=== PATIENT | male | born 1940 | race Caucasian/White ===

== ENCOUNTER 2018-12-17 03:37 | Emergency (ER) | payer MEDICARE ==
[2018-12-17] MEDS ORDERED: MIDAZOLAM HCL 50 MG/100 ML RTUINJ ONE (03:52)
[2018-12-17] MEDS ORDERED: NOREPINEPHRINE BITARTRATE INJ/PF 4 MG/4 ML SDV IV ONE ×2 (03:56→08:34)
[2018-12-17] MEDS ORDERED: MIDAZOLAM 2 MG/2 ML INJ ONE (04:03)
[2018-12-17] MEDS ORDERED: TRANEXAMIC ACID INJ/PF 1,000 MG/10 ML SDV IV ONE ×2 (04:15→08:12)
[2018-12-17 04:25] LABS: ABSOLUTE EOSINOPHILS # (AUTO) 0.1 10^3/uL (0.0-0.6); ABSOLUTE LYMPHOCYTES (AUTO) 5.2 10^3/uL (0.5-4.7); ABSOLUTE MONOCYTES (AUTO) 0.5 10^3/uL (0.1-1.4); ABSOLUTE NEUT (AUTO) 3.9 10^3/uL (1.7-8.2); BASOPHILS % (AUTO) 0.4 % (0-2); EOSINOPHILS % (AUTO) 1.2 % (0-6); HEMATOCRIT 23.8 % (37.9-51.0); MEAN CORPUSCULAR HGB CONC 31.8 g/dL (32.0-36.0); MEAN CORPUSCULAR VOLUME 94 fl (80-97); MONOCYTES % (AUTO) 5.4 % (3-13); PLATELET COUNT 164 10^3/uL (150-450); RED BLOOD COUNT 2.52 10^6/uL (4.35-5.55); RED CELL DISTRIBUTION WIDTH 17.8 % (11.5-14.0); TOTAL CELLS COUNTED % (AUTO) 100 %; WHITE BLOOD COUNT 9.7 10^3/uL (4.0-10.5)
[2018-12-17 04:27] LABS: FIBRINOGEN 295 mg/dL (209-497); INTERNATIONAL RATION (INR) 1.64; PROTHROMBIN TIME 19.6 SEC (11.4-15.4)
[2018-12-17 04:28] LABS: HEMOGLOBIN 7.6 g/dL (13.5-17.0); PARTIAL THROMBOPLASTIN TIME 38.3 SEC (23.5-35.8)
[2018-12-17 04:30] LABS: D-DIMER 1.55 ug/mL (0.00-0.50)
[2018-12-17] MEDS ORDERED: VASOPRESSIN INJ 20 UNIT/1 ML VIAL ONE ×6 (04:46→09:01)
[2018-12-17 04:52] LABS: ALANINE AMINOTRANSFERASE 26 U/L (21-72); ALBUMIN 2.3 g/dL (3.5-5.0); ALKALINE PHOSPHATASE 62 U/L (38-126); ANION GAP 17 (5-19); ASPARTATE AMINO TRANSFERASE 58 U/L (17-59); BILIRUBIN,DIRECT 0.2 mg/dL (0.0-0.4); BILIRUBIN,TOTAL 0.3 mg/dL (0.2-1.3); BLOOD UREA NITROGEN 16 mg/dL (7-20); CALCIUM 8.3 mg/dL (8.4-10.2); CARBON DIOXIDE 12 mmol/L (22-30); CHLORIDE 111 mmol/L (98-107); GLUCOSE 208 mg/dL (75-110); POTASSIUM 4.2 mmol/L (3.6-5.0); SODIUM 140.4 mmol/L (137-145)
[2018-12-17] MEDS: DEXTROSE 5%-WATER 250 ML with VASOPRESSIN 100 UNIT IV PRN ×8 (04:52→09:37)
--- NOTE | 2018-12-17 04:57 | RADIOLOGY REPORT (SQ) ---
EXAM DESCRIPTION: XR CHEST 1 VIEW COMPLETED DATE/TME: 12/17/2018 04:16 CLINICAL HISTORY: 78 years, Male, intubated COMPARISON: None. NUMBER OF VIEWS: One TECHNIQUE: AP view of the chest LIMITATIONS: None. FINDINGS: As a left basilar airspace opacity with small left pleural effusion. The heart is at the upper limit of normal in size. There is no pneumothorax. The endotracheal tube terminates 3.3 cm above the chaya. The right chest wall port terminates within the SVC. IMPRESSION: Left basilar airspace opacity with small left pleural effusion. Satisfactory position of the endotracheal tube. copyright 2010 [employer]- All Rights Reserved
--- NOTE | 2018-12-17 05:48 | ER Document Report ---
ED General - General Chief Complaint: GI Bleeding Stated Complaint: VOMITING Notes: Patient is a 78-year-old male with a history of esophageal cancer and mass who presents with heavy bleeding coming from the mouth and esophagus. Patient has had this happen once before and had to have emergent surgery. He is followed at [facility]. He said his previous surgery at [facility]. He just recently finished radiation and chemotherapy treatments. He is also had some treatment at [facility] but family says everything is currently being followed at [facility]. Daughter says his symptoms started suddenly tonight. Says he does not take any blood thinning medications. Medics also mentioned that they did do an EKG which shows evidence of ST elevation NM. Does have previous history of coronary disease. It is difficult to get any history from the patient as he is very diaphoretic and weak and cannot really talk and is very ill. - Related Data Allergies/Adverse Reactions: No Known Allergies Allergy (Unverified 12/17/18 07:43) Past Medical History - Social History Smoking Status: Unknown if Ever Smoked Frequency of alcohol use: None Drug Abuse: None Family History: Reviewed & Not Pertinent Review of Systems - Review of Systems Notes: My Normal Review Basic REVIEW OF SYSTEMS: CONSTITUTIONAL : Denies fever, chills, or sweats. Denies recent illness. RESPIRATORY: Denies cough, cold, or chest congestion. Denies shortness of breath, difficulty breathing, or wheezing. GASTROINTESTINAL: Denies abdominal pain. Active vomiting MUSCULOSKELETAL: Denies neck or back pain or joint pain or swelling. SKIN: Denies rash or skin lesions. HEMATOLOGIC : Denies easy bruising or bleeding. NEUROLOGICAL: Denies altered mental status or loss of consciousness. Denies headache. Denies weakness or paralysis or loss of use of either side. Denies problems with gait or speech. Denies sensory or motor loss. ALL OTHER SYSTEMS REVIEWED AND NEGATIVE. Physical Exam - Vital signs Vitals: Pulse Ox 96 12/17/18 04:10 - Notes Notes: General Appearance: Pale, diaphoretic, unwell appearing. Hypotensive. Actively vomiting blood. Vitals: reviewed, See vital signs table. Head: no swelling or tenderness to the head Eyes: PERRL, EOMI, Conjuctiva clear Mouth: Red blood coming from mouth. Throat: No tonsillar inflammation, No airway obstruction, No lymphadenopathy Neck: Supple, no neck tenderness, No thyromegaly Lungs: No wheezing, No rales, No rhonci, No accessory muscle use, good air exchange bilaterally. Heart: Normal rate, Regular rythm, No murmur, no rub Abdomen: Normal BS, soft, No rigidity, No abdominal tenderness Extremities: good pulses in all extremities, no swelling or tenderness in the extremities, no edema. Skin: warm, dry, appropriate color, no rash Neuro: Patient is awake but somnolent appearing. Difficult to get full neuro exam as patient cannot follow commands at this time. He does have some purposeful movement in all extremities. Course - Re-evaluation Re-evalutation: 12/17/18 05:47 I did speak with MICU fellow at [facility], Dr. Marcell Vargas. This is her first, but now the room as I have been in the room ever since the patient arrived as he has been continually bleeding of had to be doing transfusions as well as central lines as well as attempted art line placement as well as intubation. I did speak with MICU attending at [facility]. He requests I get a repeat CBC and a lactic acid and ABG. He said he wants to see his stability the patient and that he would except for [facility] transport. 12/17/18 06:50 I spoke again with Dr. Vargas. Agrees to accept the patient. He says I will send out to [facility] transport to evaluate the patient for transport. 12/17/18 07:08 Continue to titrated on the patient's Levophed. He was as high as 21 point. His Levophed is now down to 7. His blood pressure is stable with this. We will continue to slowly titrate down the Levophed. His repeat labs are improving. We will continue to monitor the patient until transfer. 12/17/18 08:09 Patient's did have another episode of large amount of masses. He brought approximately 200 mL's of blood with clots. I therefore gave him another unit of blood to replace what is obviously him still bleeding. I also ordered another unit of FFP. Patient therefore will have a total of 7 units of packed red blood cells and 3 units of FFP. 12/17/18 08:18 In regards to the patient's ST elevation NM on EKG, this is likely to the fact the patient is hypotensive upon arrival from all the bleeding. He is different candidate for thrombolytics. His most emergent need is to control the bleeding and therefore went forward with TXA as well as giving him multiple units of blood. His without supportive treatment of the bleeding patient would have and therefore think the possible NM is secondary at this time. Troponin surprisingly is in the indeterminate range and not significantly elevated. I did inform veterinary anatomist when I talked him of the EKG findings. Multiple attempts at the arterial line were performed. It initially by the left femoral artery however the femoral artery is very calcified and every time the needle would start an ultrasound of the push to the side and was unable to punctual artery. There tried the left radial artery but was unable to get a flash. I then did ultrasound-guided arterial line and the brachial artery of the right arm. I was able to get a flash that the catheter would only partially thread. It did give us a blood pressure reading for approximately 20 minutes but then the line failed and I had to remove the line. 12/17/18 08:23 - Vital Signs Vital signs: Temp Pulse Resp BP Pulse Ox 24 H 142/86 H 100 12/17/18 07:49 12/17/18 07:49 12/17/18 07:49 - Laboratory Result Diagrams: 12/17/18 05:52 12/17/18 05:52 Laboratory results interpreted by me: 12/17/18 12/17/18 12/17/18 03:48 03:48 03:48 WBC RBC 2.52 L Hgb 7.6 L Hct 23.8 L MCHC 31.8 L RDW 17.8 H Seg Neutrophils % 40.0 L Lymphocytes % 53.0 H Absolute Neutrophils Absolute Lymphocytes 5.2 H PT 19.6 H APTT 38.3 H D-Dimer 1.55 H Carbonic Acid ABG pH ABG pCO2 ABG pO2 ABG HCO3 ABG Total CO2 ABG O2 Saturation VBG pH VBG HCO3 Sodium Potassium Chloride 111 H Carbon Dioxide 12 L Glucose 208 H Lactic Acid Calcium 8.3 L Total Protein 5.0 L Albumin 2.3 L Urine Protein Urine Urobilinogen Urine Ascorbic Acid Crossmatch 12/17/18 12/17/18 12/17/18 03:54 05:52 05:52 WBC 15.4 H RBC 3.60 L Hgb 10.9 L D Hct 32.6 L MCHC RDW 15.8 H Seg Neutrophils % 78.2 H Lymphocytes % Absolute Neutrophils 12.1 H Absolute Lymphocytes PT APTT D-Dimer Carbonic Acid ABG pH ABG pCO2 ABG pO2 ABG HCO3 ABG Total CO2 ABG O2 Saturation VBG pH 7.20 L VBG HCO3 17.1 L Sodium Potassium Chloride Carbon Dioxide Glucose Lactic Acid Calcium Total Protein Albumin Urine Protein Urine Urobilinogen Urine Ascorbic Acid Crossmatch See Detail 12/17/18 12/17/18 12/17/18 05:52 05:52 06:27 WBC RBC Hgb Hct MCHC RDW Seg Neutrophils % Lymphocytes % Absolute Neutrophils Absolute Lymphocytes PT APTT D-Dimer Carbonic Acid 1.02 L ABG pH 7.28 L ABG pCO2 33.9 L ABG pO2 201.0 H ABG HCO3 15.7 L ABG Total CO2 16.8 L ABG O2 Saturation 99.3 H VBG pH VBG HCO3 Sodium 135.1 L Potassium 5.8 H D Chloride Carbon Dioxide 16 L Glucose 301 H Lactic Acid Calcium 7.2 L Total Protein Albumin Urine Protein 30 H Urine Urobilinogen 2.0 H Urine Ascorbic Acid 40 H Crossmatch 12/17/18 06:39 WBC RBC Hgb Hct MCHC RDW Seg Neutrophils % Lymphocytes % Absolute Neutrophils Absolute Lymphocytes PT APTT D-Dimer Carbonic Acid ABG pH ABG pCO2 ABG pO2 ABG HCO3 ABG Total CO2 ABG O2 Saturation VBG pH VBG HCO3 Sodium Potassium Chloride Carbon Dioxide Glucose Lactic Acid 4.8 H Calcium Total Protein Albumin Urine Protein Urine Urobilinogen Urine Ascorbic Acid Crossmatch - EKG Interpretation by Me Additional EKG results interpreted by me: 12/17/18 08:20 EKG is reviewed and interpreted by me. EKG shows sinus tachycardia with rate of 101 bpm. Patient has what appears to be a ST elevation NM with elevation in inferior leads and reciprocal depressions in the anterior leads. KS interval, QRS duration are within normal range. QTc interval slightly prolonged. Procedures - Central Line Right Femoral Central line pre-insertion: Chloraprep applied Central line lumen type: Triple Ultrasound guided: Yes Central line post-insertion: Blood return from lumens, Biopatch applied, Sutured, Sterile dressing applied Number of attempts: 1 Complications: No - Intubation Orotracheal Airway evaluation: Normal anatomy Mallampati Classification: Class 1 Intubation method: Orotracheal Blade type: Bernadette Blade size: 4 Equipment used: Glidescope ETT size: 7.5 Breath Sounds after Intubation: Equal End tidal CO2 confirmed: Yes Critical Care Note - Critical Care Note Total time excluding time spent on procedures (mins): 150 Comments: Critical care time for this patient not including time spent in procedures proximally 150 minutes due to management of hemorrhagic shock, management of ventilator, management sedation, management of severe upper GI bleeding. Discharge - Discharge Clinical Impression: Hemorrhagic shock GI bleed Qualifiers: GI bleed type/associated pathology: unspecified gastrointestinal hemorrhage type Qualified Code(s): K92.2 - Gastrointestinal hemorrhage, unspecified STEMI (ST elevation myocardial infarction) Qualifiers: Involved coronary artery: unspecified coronary artery Qualified Code(s): I21.3 - ST elevation (STEMI) myocardial infarction of unspecified site Condition: Serious Disposition: [facility]
[2018-12-17 06:17] LABS: VENOUS BLOOD BASE EXCESS -10.5 mmol/L; VENOUS BLOOD HCO3 17.1 mmol/L (20-32); VENOUS BLOOD PCO2 44.5 mmHg (35-63); VENOUS BLOOD PH 7.2 (7.30-7.42)
[2018-12-17 06:20] LABS: ABSOLUTE BASOPHILS # (AUTO) 0.1 10^3/uL (0.0-0.2); ABSOLUTE EOSINOPHILS # (AUTO) 0.1 10^3/uL (0.0-0.6); ABSOLUTE LYMPHOCYTES (AUTO) 2.5 10^3/uL (0.5-4.7); ABSOLUTE MONOCYTES (AUTO) 0.7 10^3/uL (0.1-1.4); ABSOLUTE NEUT (AUTO) 12.1 10^3/uL (1.7-8.2); BASOPHILS % (AUTO) 0.3 % (0-2); EOSINOPHILS % (AUTO) 0.4 % (0-6); HEMATOCRIT 32.6 % (37.9-51.0); LYMPHOCYTES % (AUTO) 16.3 % (13-45); MEAN CORPUSCULAR HEMOGLOBIN 30.2 pg (27.0-33.4); MEAN CORPUSCULAR HGB CONC 33.4 g/dL (32.0-36.0); MEAN CORPUSCULAR VOLUME 91 fl (80-97); MONOCYTES % (AUTO) 4.8 % (3-13); PLATELET COUNT 214 10^3/uL (150-450); RED CELL DISTRIBUTION WIDTH 15.8 % (11.5-14.0); SEGMENTED NEUTROPHILS % (AUTO) 78.2 % (42-78); TOTAL CELLS COUNTED % (AUTO) 100 %; WHITE BLOOD COUNT 15.4 10^3/uL (4.0-10.5)
[2018-12-17 06:21] LABS: HEMOGLOBIN 10.9 g/dL (13.5-17.0); URINE SPECIFIC GRAVITY 1.021
[2018-12-17 06:22] LABS: APPEARANCE,URINE CLEAR; BILIRUBIN,URINE NEGATIVE (NEGATIVE); COLOR,URINE YELLOW; GLUCOSE, URINE NEGATIVE (NEGATIVE); KETONES,URINE NEGATIVE (NEGATIVE); LEUKOCYTE ESTERASE,URINE NEGATIVE (NEGATIVE); NITRITE,URINE NEGATIVE (NEGATIVE); PROTEIN,URINE 30 mg/dL (NEGATIVE)
[2018-12-17 06:35] LABS: ANION GAP 13 (5-19); BLOOD UREA NITROGEN 17 mg/dL (7-20); CALCIUM 7.2 mg/dL (8.4-10.2); CARBON DIOXIDE 16 mmol/L (22-30); CHLORIDE 106 mmol/L (98-107); GLUCOSE 301 mg/dL (75-110); SODIUM 135.1 mmol/L (137-145)
[2018-12-17 06:39] LABS: ARTERIAL BLOOD H2CO3 1.02 mmol/L (1.05-1.35); ARTERIAL BLOOD HCO3 15.7 mmol/L (20-24); ARTERIAL BLOOD O2 SATURATION 99.3 % (94-98); ARTERIAL BLOOD PCO2 33.9 mmHg (35-45); ARTERIAL BLOOD PH 7.28 (7.35-7.45); ARTERIAL BLOOD TOTAL CO2 16.8 mmol/L (23-27)
[2018-12-17 06:41] LABS: ARTERIAL BLOOD FIO2 80%
[2018-12-17 06:46] LABS: POTASSIUM 5.8 mmol/L (3.6-5.0)
[2018-12-17] MEDS ORDERED: NORMAL SALINE 250 ML IV PRN ×2 (07:54→08:48)
[2018-12-17] MEDS ORDERED: MIDAZOLAM HCL 50 MG/100 ML RTUINJ IV PRN (08:11)
[2018-12-17] MEDS ORDERED: ETOMIDATE INJ/PF 20 MG/10 ML SDV IV ONE (08:11)
[2018-12-17] MEDS ORDERED: DEXTROSE 5%-WATER 250 ML with NOREPINEPHRINE BITARTRATE 4 MG IV PRN ×2 (08:11)
[2018-12-17] MEDS ORDERED: PROPOFOL 1,000 MG/100 ML INFUS..BTL IV ONE (09:20)
[2018-12-17] MEDS ORDERED: CALCIUM GLUCONATE 1000 MG/10 ML INJ IV ONE ×4 (09:42→10:09)
--- NOTE | 2018-12-17 09:43 | EKG REPORT ---
SEVERITY:- ABNORMAL ECG - SINUS TACHYCARDIA INFERIOR INFARCT, ACUTE PROLONGED QT INTERVAL : Confirmed by: Catrachito Vides 17-Dec-2018 09:43:03
[2018-12-17] MEDS ORDERED: MIDAZOLAM 2 MG/2 ML INJ IV ONE (09:46)
[2018-12-17] MEDS ORDERED: SUCCINYLCHOLINE CHLORIDE INJ 200 MG/10 ML VIAL IV ONE (09:46)
[2018-12-17] MEDS ORDERED: KETOROLAC TROMETHAMINE INJ/PF 30 MG/1 ML SDV ONE (09:53)
[2018-12-17 10:35] VITALS: BP 84/18
[2018-12-17] MEDS ORDERED: PROPOFOL 1,000 MG/100 ML INFUS..BTL IV PRN (11:15)
[2018-12-17] MEDS ORDERED: SUCCINYLCHOLINE CHLORIDE INJ 200 MG/10 ML VIAL ONE (11:43)
--- NOTE | 2018-12-17 23:54 | EKG REPORT ---
SEVERITY:- ABNORMAL ECG - SINUS TACHYCARDIA VENTRICULAR PREMATURE COMPLEX INFERIOR INFARCT, ACUTE CONSIDER POSTERIOR WALL INVOLVEMENT BORDERLINE PROLONGED QT INTERVAL : Confirmed by: Catrachito Vides 17-Dec-2018 23:52:29
[2018-12-18] MEDS ORDERED: ETOMIDATE INJ/PF 20 MG/10 ML SDV IV ONE (20:50)
== END 2018-12-17 10:20 | disposition short-term general hospital (02) ==
LOC: ER 03:37
DX: R57.8 Other shock (principal); I21.3 ST elevation (STEMI) myocardial infarction of unspecified site; K92.2 Gastrointestinal hemorrhage, unspecified; K92.0 Hematemesis; R61 Generalized hyperhidrosis; I95.9 Hypotension, unspecified; Z85.01 Personal history of malignant neoplasm of esophagus
CPT/HCPCS: 93005; 99291; 99292; 96365; 96366; 86900; 86901; 36415; 36430; 86850; 82803 ×2; 83605; 85025; 85384; 85610; 85730; 80053; 81001; 84484; 86920; 85379; 71045; 94660; 93010; 31500; 36556; P9017; P9016; P9035; J2250 ×2; J2704; J3490 ×3; J0330; J7060